=== PATIENT | female | born 1950 | race Caucasian/White ===

== ENCOUNTER → 2016-10-03 | Outpatient (CLI) | payer MEDICARE, OTHER ==
[2016-10-03 10:28] LABS: HEMOGLOBIN 14.9 gm/dl (12.3-15.3); RED BLOOD COUNT 5.02 M/UL (4.00-5.10)
[2016-10-03 10:46] LABS: BUN/CREATININE RATIO 21 (0-10)
== END ==
LOC: LAB 09:35
PROVIDERS: Physician Assistant
DX: E03.9 Hypothyroidism, unspecified (principal)
CPT/HCPCS: 36415; 80048; 80061; 80076; 84443; 85025

== ENCOUNTER 2016-12-27 10:52 | Emergency (ER) | payer MEDICARE, OTHER ==
[2016-12-27 12:21] LABS: HEMOGLOBIN 15.1 gm/dl (12.3-15.3); RED BLOOD COUNT 5.09 M/UL (4.00-5.10)
[2016-12-27 12:43] LABS: BUN/CREATININE RATIO 24 (0-10)
== END 2016-12-27 14:03 | disposition home or self-care (01) ==
LOC: ER1 10:52
PROVIDERS: Physician Assistant
DX: J06.9 Acute upper respiratory infection, unspecified (principal); I11.0 Hypertensive heart disease with heart failure; I50.9 Heart failure, unspecified; J45.909 Unspecified asthma, uncomplicated; Z88.0 Allergy status to penicillin; Z88.1 Allergy status to other antibiotic agents; Z88.8 Allergy status to other drugs, medicaments and biological substances; Z95.5 Presence of coronary angioplasty implant and graft
CPT/HCPCS: 36415; 71020; 80053; 82550; 82553; 83874; 83880; 84484; 85025; 87081; 87880; 93005; 99284

== ENCOUNTER 2020-06-22 10:20 | Emergency (ER) | payer OTHER ==
[2020-06-22 11:16] LABS: HEMOGLOBIN 15.2 gm/dl (12.3-15.3); RED BLOOD COUNT 4.85 M/UL (4.00-5.10); WHITE BLOOD COUNT 5.8 K/UL (4.5-11.0)
[2020-06-22 11:51] LABS: BUN/CREATININE RATIO 21 (0-10)
[2020-06-22] MEDS ORDERED: ZOFRAN4 MG PO (14:03)
== END 2020-06-22 14:31 | disposition home or self-care (01) ==
LOC: ER1 10:20
PROVIDERS: Emergency Medicine
DX: E87.6 Hypokalemia (principal); R51.9 Headache, unspecified; R19.7 Diarrhea, unspecified; R11.2 Nausea with vomiting, unspecified; R42 Dizziness and giddiness; Z20.822 Contact with and (suspected) exposure to COVID-19
CPT/HCPCS: 0240U; 70450; 71045; 80053; 82550; 82553; 83605; 83874; 84484; 85025; 93005; 96374; 99284; J2405

== ENCOUNTER → 2020-08-06 | Outpatient (CLI) | payer OTHER ==
[~2020-08-06] MED LIST: ZOFRAN4 MG PO
[2020-08-06 10:51] LABS: HEMOGLOBIN 14.7 gm/dl (12.3-15.3); RED BLOOD COUNT 4.79 M/UL (4.00-5.10); WHITE BLOOD COUNT 5.8 K/UL (4.5-11.0)
[2020-08-06 11:20] LABS: BUN/CREATININE RATIO 27 (0-10)
== END ==
LOC: LAB 10:00
PROVIDERS: Internal Medicine
DX: I10 Essential (primary) hypertension (principal); E53.8 Deficiency of other specified B group vitamins; E55.9 Vitamin D deficiency, unspecified
CPT/HCPCS: 36415; 80048; 80061; 80076; 82607; 84443; 85025

== ENCOUNTER → 2020-08-14 | Outpatient (CLI) | payer OTHER ==
[2020-08-14 11:19] LABS: BUN/CREATININE RATIO 25 (0-10)
== END ==
LOC: LAB 10:28
PROVIDERS: Internal Medicine
DX: E87.6 Hypokalemia (principal)
CPT/HCPCS: 36415; 80048; 83735

== ENCOUNTER → 2021-03-05 | Outpatient (CLI) | payer OTHER ==
[2021-03-05 11:12] LABS: HEMOGLOBIN 14.6 gm/dl (12.3-15.3); RED BLOOD COUNT 4.8 M/UL (4.00-5.10); WHITE BLOOD COUNT 5.8 K/UL (4.5-11.0)
[2021-03-05 11:33] LABS: BUN/CREATININE RATIO 35 (0-10)
== END ==
LOC: LAB 10:47
PROVIDERS: Internal Medicine
DX: E03.9 Hypothyroidism, unspecified (principal); E78.5 Hyperlipidemia, unspecified; I10 Essential (primary) hypertension
CPT/HCPCS: 36415; 80048; 80061; 80076; 84443; 85025

== ENCOUNTER 2021-04-10 10:42 | Inpatient (IN) | payer OTHER ==
[~2021-04-10] VITALS: Ht 160 cm; Wt 74.8 kg
[2021-04-10 12:50] LABS: HEMOGLOBIN 14.4 gm/dl (12.3-15.3); RED BLOOD COUNT 4.75 M/UL (4.00-5.10)
[2021-04-10 13:06] LABS: BUN/CREATININE RATIO 24 (0-10)
[2021-04-10] MEDS ORDERED: ZOFRAN 4 MG TAB4 MG PO (19:12)
[2021-04-10] MEDS ORDERED: PEPCID40 MG PO (19:12)
[2021-04-11 09:46] LABS: HEMOGLOBIN 13.5 gm/dl (12.3-15.3)
[2021-04-11 10:08] LABS: RED BLOOD COUNT 4.21 M/UL (4.00-5.10); WHITE BLOOD COUNT 17.3 K/UL (4.5-11.0)
[2021-04-11] MEDS ORDERED: FUROSEMIDE20 MG PO (10:50)
[2021-04-11] MEDS ORDERED: CARVEDILOL6.25 MG PO (10:50)
[2021-04-11] MEDS ORDERED: POTASSIUM CHLO20 ME1 PO (10:51)
[2021-04-11] MEDS ORDERED: PROAIR DIGIHAL90 MCG INH (10:51)
[2021-04-11] MEDS ORDERED: FLONASE ALLER15.8 ML (10:52)
[2021-04-11] MEDS ORDERED: ELIQUIS2.5 MG PO (10:52)
[2021-04-11] MEDS ORDERED: DOXYCYCLINE HY100 M2 PO (12:03)
[2021-04-11] MEDS ORDERED: ALBUTEROL2.5 MG/3 M NEB (12:03)
[2021-04-11] MEDS ORDERED: OMNICEF 300 MG300 MG PO (12:12)
[2021-04-12 06:22] LABS: HEMOGLOBIN 13.3 gm/dl (12.3-15.3); RED BLOOD COUNT 4.23 M/UL (4.00-5.10)
[2021-04-12 06:24] LABS: WHITE BLOOD COUNT 12.2 K/UL (4.5-11.0)
[2021-04-12 07:01] LABS: BUN/CREATININE RATIO 18 (0-10)
[2021-04-13 06:43] LABS: HEMOGLOBIN 12.8 gm/dl (12.3-15.3); RED BLOOD COUNT 4.08 M/UL (4.00-5.10)
[2021-04-13 06:46] LABS: WHITE BLOOD COUNT 7.9 K/UL (4.5-11.0)
[2021-04-13 07:03] LABS: BUN/CREATININE RATIO 21 (0-10)
--- NOTE | 2021-04-14 04:11 | NUR ---
PATIENT REUESTED MEDICATION TO HELP HER SLEEP AND BOWEL MEDICATION. CALL PLACED TO DR BURGESS. NEW ORDERS RECEIVED FOR AMBIEN 5 MG.AND TO SPEAK WITH REGARDING BOWEL MEDICATION IN AM. TOOK MEDICATION TO PATIIENT. PATIENT REFUSED MEDICATION STAED" I REMEBER THAT MEDICATION GAVE MY MOM NIGHTMARES AND I AM AFRAID TO TAKE IT."
[2021-04-14 08:34] LABS: HEMOGLOBIN 12.3 gm/dl (12.3-15.3); RED BLOOD COUNT 3.92 M/UL (4.00-5.10)
[2021-04-14 08:56] LABS: BUN/CREATININE RATIO 19 (0-10)
[2021-04-14] MEDS ORDERED: METRONIDAZOLE500 MG PO (18:14)
== END 2021-04-14 18:11 | disposition home or self-care (01) | DRG 203 ==
LOC: ER1 10:42 → CDU 19:36 → M/S 19:36
PROVIDERS: Emergency Medicine; Internal Medicine; ADMIT Family Medicine
DX: J20.9 Acute bronchitis, unspecified (principal); J45.909 Unspecified asthma, uncomplicated; Z20.822 Contact with and (suspected) exposure to COVID-19; I25.10 Atherosclerotic heart disease of native coronary artery without angina pectoris; I48.91 Unspecified atrial fibrillation; E87.6 Hypokalemia; I11.9 Hypertensive heart disease without heart failure; Z79.01 Long term (current) use of anticoagulants; Z88.1 Allergy status to other antibiotic agents; Z88.0 Allergy status to penicillin; Z88.8 Allergy status to other drugs, medicaments and biological substances; Z95.5 Presence of coronary angioplasty implant and graft; Z90.49 Acquired absence of other specified parts of digestive tract; Z82.49 Family history of ischemic heart disease and other diseases of the circulatory system
CPT/HCPCS: 36415; 70450; 71045; 80048; 80053; 80307; 81001; 82550; 82553; 83605; 83735; 83874; 83880; 84484; 85025; 85027; 87040; 87081; 87880; 93005; 94640; 94664; 94760; 96374; 96375; 96376; 99285; G0378; J0696; J1940; J2405; J3480; Q9967; U0002

== ENCOUNTER → 2021-05-29 | Outpatient (CLI) | payer OTHER ==
[~2021-05-29] MED LIST changes: +ALBUTEROL2.5 MG/3 M NEB; +CARVEDILOL6.25 MG PO; +DOXYCYCLINE HY100 M2 PO; +ELIQUIS2.5 MG PO; +FLONASE ALLER15.8 ML; +FUROSEMIDE20 MG PO; +METRONIDAZOLE500 MG PO; +OMNICEF 300 MG300 MG PO; +PEPCID40 MG PO; +POTASSIUM CHLO20 ME1 PO; +PROAIR DIGIHAL90 MCG INH; +ZOFRAN 4 MG TAB4 MG PO
[2021-05-29 13:34] LABS: BUN/CREATININE RATIO 17 (0-10)
[2021-05-29 13:35] LABS: HEMOGLOBIN 15.1 gm/dl (12.3-15.3); RED BLOOD COUNT 4.91 M/UL (4.00-5.10); WHITE BLOOD COUNT 5.5 K/UL (4.5-11.0)
== END ==
LOC: LAB 11:42
PROVIDERS: Internal Medicine
DX: I25.10 Atherosclerotic heart disease of native coronary artery without angina pectoris (principal)
CPT/HCPCS: 36415; 80048; 80061; 80076; 84443; 85025

== ENCOUNTER → 2021-07-31 | Outpatient (CLI) | payer OTHER ==
[2021-07-31 07:16] LABS: HEMOGLOBIN 14.4 gm/dl (12.3-15.3); RED BLOOD COUNT 4.58 M/UL (4.00-5.10); WHITE BLOOD COUNT 6.1 K/UL (4.5-11.0)
[2021-07-31 08:24] LABS: BUN/CREATININE RATIO 27 (0-10)
== END ==
LOC: LAB 06:54
PROVIDERS: Internal Medicine
DX: I25.10 Atherosclerotic heart disease of native coronary artery without angina pectoris (principal)
CPT/HCPCS: 36415; 80048; 80061; 80076; 85025

== ENCOUNTER → 2021-08-01 | Outpatient (CLI) | payer OTHER | LOC: LAB 12:02 | DX: R53.81 Other malaise (principal); R53.83 Other fatigue; K86.81 Exocrine pancreatic insufficiency; E55.9 Vitamin D deficiency, unspecified | CPT/HCPCS: 36415; 82150; 82607; 82728; 83690; 84443 ==

== ENCOUNTER → 2021-09-23 | Outpatient (CLI) | payer OTHER | LOC: KOH-I 13:00 | DX: R42 Dizziness and giddiness (principal); R51.9 Headache, unspecified; E23.6 Other disorders of pituitary gland | CPT/HCPCS: 70551 ==

== ENCOUNTER → 2021-12-06 | Outpatient (CLI) | payer OTHER | LOC: LAB 12:35 | DX: B34.9 Viral infection, unspecified (principal); Z20.822 Contact with and (suspected) exposure to COVID-19 | CPT/HCPCS: 36415; U0002 ==